=== PATIENT | male | born 1995 | race Caucasian/White ===

== ENCOUNTER 2019-10-18 16:08 | Emergency (ER) | payer OTHER ==
[2019-10-18 16:22] VITALS: BP 119/73; PULSE 89; TEMP 98.6; BMI 33.5
--- NOTE | 2019-10-18 16:23 | PDOC ---
Rapid Medical Evaluation Chief Complaint: Pain, Acute Time Seen by Provider: 10/18/19 16:18 Medical Evaluation: 10/18/19 16:21 Pt presents for two weeks of RUQ pain. He states the pain has been getting worse over the past two weeks and is consistent. Denies n/v. Admits to diarrhea. Exam:TTP of the RUQ Orders: Labs, US Pt to proceed to the ER for evaluation Discharge Disposition - Diagnosis Abdominal pain Qualifiers: Abdominal location: right upper quadrant Qualified Code(s): R10.11 - Right upper quadrant pain - Referrals - Patient Instructions - Post Discharge Activity
[2019-10-18 17:03] LABS: BASO % 0.2 % (0-2.0); EOS % 1.1 % (0-4.5); HEMATOCRIT 42.1 % (35.4-49); HEMOGLOBIN 14.6 GM/dL (11.7-16.9); LYMPH % 32.8 % (8-40); MCHC 34.8 g/dl (32.0-35.9); MEAN CELL VOLUME 92.2 fl (80-96); MEAN PLT VOLUME 8.2 fl (7.5-11.1); NEUT % 58.9 % (42.8-82.8); PLATELET COUNT 220 K/MM3 (134-434); RBC 4.57 M/mm3 (4.00-5.60); RDW 12.8 % (11.9-15.9); WHITE BLOOD COUNT 7.7 K/mm3 (4.0-10.0)
[2019-10-18 17:23] LABS: BILIRUBIN,TOTAL 0.8 mg/dL (0.2-1); BLOOD UREA NITROGEN 18.9 mg/dL (7-18); CALCIUM 9.2 mg/dL (8.5-10.1); CREATININE 0.8 mg/dL (0.55-1.3); POTASSIUM 4.1 mmol/L (3.5-5.1); TOT PROT 7.8 g/dl (6.4-8.2)
[2019-10-18 17:32] LABS: INR 1.1 (0.83-1.09)
--- NOTE | 2019-10-18 20:01 | PDOC ---
History of Present Illness - General Chief Complaint: Pain, Acute Stated Complaint: ABD PAIN Time Seen by Provider: 10/18/19 16:18 History Source: Patient Exam Limitations: No Limitations Past History - Past Medical History Home Medications: Ambulatory Orders NK [No Known Home Medication] 10/18/19 COPD: No - Immunization History Immunization Up to Date: No - Psycho Social/Smoking Cessation Hx Smoking History: Never smoked Have you smoked in the past 12 months: No Information on smoking cessation initiated: No Hx Alcohol Use: No Drug/Substance Use Hx: No *Physical Exam - Vital Signs Last Vital Signs Temp Pulse Resp BP Pulse Ox 98.6 F 89 18 119/73 98 10/18/19 16:16 10/18/19 16:16 10/18/19 16:16 10/18/19 16:16 10/18/19 16:16 - Physical Exam General Appearance: No: Apparent Distress Respiratory/Chest: positive: Lungs Clear, Normal Breath Sounds, Other (minimal tenderness along R subcostal region). negative: Respiratory Distress Cardiovascular: positive: Regular Rhythm, Regular Rate, S1, S2. negative: Murmur Gastrointestinal/Abdominal: positive: Normal Bowel Sounds, Soft. negative: Tender, Distended, Guarding, Rebound Musculoskeletal: negative: CVA Tenderness Neurologic: positive: Alert ED Treatment Course - LABORATORY CBC & Chemistry Diagram: 10/18/19 16:32 10/18/19 16:32 - ADDITIONAL ORDERS Additional order review: Laboratory Results 10/18/19 10/18/19 16:32 16:32 PT with INR 13.00 INR 1.10 H Sodium 135 L Potassium 4.1 Chloride 105 Carbon Dioxide 26 Anion Gap 4 L BUN 18.9 H Creatinine 0.8 Est GFR (CKD-EPI)AfAm 142.89 Est GFR (CKD-EPI)NonAf 123.29 Random Glucose 82 Calcium 9.2 Total Bilirubin 0.8 AST 9 L ALT 20 Alkaline Phosphatase 60 Total Protein 7.8 Albumin 4.0 Lipase 94 10/18/19 16:32 RBC 4.57 MCV 92.2 MCHC 34.8 RDW 12.8 MPV 8.2 Neutrophils % 58.9 Lymphocytes % 32.8 Monocytes % 7.0 Eosinophils % 1.1 Basophils % 0.2 - RADIOLOGY Radiology Studies Ordered: Category Date Time Status CHEST PA & LAT [RAD] Stat Radiology 10/18/19 18:54 Completed Medical Decision Making - Medical Decision Making 24 y/o M with hx of HIV presents with pain below R costal region x 2 weeks, worse today. Denies fever, URI sxs, n/v/d, urinary sxs. Is social alcohol drinker. Smokes around 8 cigs/day. Denies drug use. Denies prior abdominal surgeries Labs unremarkable RUQ sono negative CXR negative as well Patient has PCP with whom he can follow-up with stable for dc 10/18/19 19:59 Discharge - Discharge Information Problems reviewed: Yes Clinical Impression/Diagnosis: Abdominal pain Qualifiers: Abdominal location: right upper quadrant Qualified Code(s): R10.11 - Right upper quadrant pain Condition: Stable Disposition: HOME - Admission No - Additional Discharge Information Prescription Drug Monitoring Program (I-STOP) results: I-STOP not reviewed - Follow up/Referral - Patient Discharge Instructions Patient Printed Discharge Instructions: DI for Abdominal Pain-Adult Additional Instructions: Thank you for choosing [facility]. It was a pleasure taking care of you. Your lab work and imaging were unremarkable Please follow-up with your doctor for further evaluation Return to the Emergency Department if your symptoms worsen or persist or have other concerning symptoms. Laura por elegir el [facility]. Fue un placer cuidar de ti. Gaitan trabajo de laboratorio e imgenes no fueron notables Mikey un seguimiento con gaitan mdico para kennedy evaluacin adicional. Regrese al departamento de emergencias si gómez sntomas empeoran o persisten o si tiene otros sntomas preocupantes. - Post Discharge Activity
== END 2019-10-18 20:00 | disposition home or self-care (01) ==
LOC: JER 16:08
DX: R10.11 Right upper quadrant pain (principal)
CPT/HCPCS: 36415; 71046-TC-FY; 76705-TC; 80053; 83690; 85025; 85610; 99283-25

== ENCOUNTER 2022-03-09 22:03 | Emergency (ER) | payer OTHER ==
[2022-03-09 22:33] VITALS: BP 110/65; PULSE 79; TEMP 98.6; BMI 27.8
== END 2022-03-10 03:18 | disposition home or self-care (01) ==
LOC: JER 22:03
DX: G44.009 Cluster headache syndrome, unspecified, not intractable (principal)
CPT/HCPCS: 99283-25; 99284-25